=== PATIENT | male | born 1970 | race Caucasian/White ===

== ENCOUNTER 2024-07-16 19:08 | Emergency (ER) | payer MEDICARE ==
[~2024-07-16] VITALS: Ht 180.3 cm; Wt 118.2 kg
[2024-07-16 20:32] LABS: BASOPHILS % (AUTO) 0.2 % (0-1); EOSINOPHILS % (AUTO) 0 % (0-6); HEMATOCRIT 29.1 % (42.0-52.0); HEMOGLOBIN 9.5 g/dl (14.0-17.9); LYMPHOCYTES # (AUTO) 0.9 X10'3 (1.1-4.8); LYMPHOCYTES % (AUTO) 6.3 % (21-51); MEAN CORPUSCULAR HEMOGLOBIN 30.1 PG (27.0-31.0); MEAN CORPUSCULAR HGB CONC 32.5 g/dL (33.0-36.5); MEAN CORPUSCULAR VOLUME 92.4 FL (78-98); MEAN PLATELET VOLUME 7.4 FL (7.4-10.4); MONOCYTES # (AUTO) 1.3 X10'3 (0-0.9); MONOCYTES % (AUTO) 9.4 % (2-12); NEUTROPHILS # (AUTO) 11.7 X10'3 (1.8-7.7); NEUTROPHILS % (AUTO) 84.1 % (42-75); PLATELET COUNT 288 X10'3 (140-440); RED BLOOD COUNT 3.15 X10'6 (4.70-6.10); RED CELL DISTRIBUTION WIDTH 15.7 % (11.5-14.5); WHITE BLOOD COUNT 13.9 X10'3 (4.5-11.0)
[2024-07-16 20:52] LABS: ALANINE AMINOTRANSFERASE < 6 U/L (12-78); ALBUMIN 2.9 G/DL (3.4-5.0); ALBUMIN/GLOBULIN RATIO 0.6 (1.1-1.5); ALKALINE PHOSPHATASE 65 IU/L (46-116); ANION GAP 21 (8-16); ASPARTATE AMINO TRANSFERASE 9 U/L (10-37); BILIRUBIN,TOTAL 0.6 MG/DL (0.1-1.0); BLOOD UREA NITROGEN 87 MG/DL (7-18); BUN/CREATININE RATIO 5.6 (10.0-20.0); CHLORIDE 94 MMOL/L (99-107); CREATININE 15.67 MG/DL (0.60-1.10); GLUCOSE 116 MG/DL (70-104); POTASSIUM 4.9 MMOL/L (3.5-5.1); SODIUM 135 MMOL/L (135-145); TOTAL CARBON DIOXIDE 20.5 MMOL/L (24-32); TOTAL PROTEIN 8.1 G/DL (6.4-8.2); eCRCL 6 ML/MIN; eGFR 3 ML/MIN
--- NOTE | 2024-07-16 21:45 | Physician Documentation ---
History of Present Illness ~ Chief Complaint: Foot pain Stated Complaint: FOOT WOUND Time Seen by MD: 21:44 Mode of Arrival: Wheelchair HPI 54-year-old male IDDM 2 ESRD Thursday dialysis presenting for left heel wound. He reports he stepped on a rock that was in his shoe and has had an open wound for about 7 weeks. He underwent course of doxycycline and followed with Podiatry. He reports over the last week he has noticed a strong smell from the area and increasing redness around the site. Tetanus witin 5 years: Yes Medication Reconciliation Allergies: Coded Allergies: Penicillins (Verified Allergy, Mild, Hives,SOB, 07/16/24) Review of Systems All Other Systems at this time: Reviewed and Negative Constitutional: Denies: fever Physical Exam Vital Signs: Temperature: 97.7, Source: Temporal, Heart Rate: 63, Respiratory Rate: 16, BP: 135/66, Pulse Oximetry: 98, Weight: 118.180 Oxygen Flow Rate: 0 Physical Exam Chronically ill Left lower extremity massive lower extremity edema, 6 cm left heel ulcer with foul smell and serous drainage Progress Progress Note 11:16 p.m. I discussed case with hospitalist who agrees to accept for admission however at bedside for both evaluated the patient and he does not want to stay in the hospital. I would advise that he is likely to lose his foot if he does not stay for IV antibiotics. He does not want to stay he [place] and is already expecting to lose his foot Results/Orders Results/Orders Orders - SANTIAGO SANTILLAN MD Foot, Complete (3vw Min) (07/16/24 21:50) Piperacillin/Tazo 4.5gm/100ml (Zosyn 4.5 (07/16/24 21:50) Culture Blood (07/16/24 21:57) Page Hospitalist (07/16/24 21:58) Fill Out Med Reconciliation (07/16/24 21:58) Completed Orders - SANTIAGO SANTILLAN MD Cbc/Diff (07/16/24 19:44) CMP (07/16/24 19:44) ESR (07/16/24 21:50) Foot, Complete (3vw Min) (07/16/24 21:50) Piperacillin/Tazo 4.5gm/100ml (Zosyn 4.5 (07/16/24 21:50) Vancomycin*Pharmacy To Dose* (Vancomycin (07/16/24 22:00) Lacticsepsis (07/16/24 21:57) C-Reactive Protein (07/16/24 20:06) Vital Signs 07/16/24 07/16/24 19:36 21:35 Temp 97.7 Pulse 63 Resp 16 16 B/P (MAP) 135/66 Pulse Ox 98 O2 Flow Rate 0 Laboratory Tests Test 07/16/24 20:06 07/16/24 22:06 White Blood Count 13.9 H Red Blood Count 3.15 L Hemoglobin 9.5 L Hematocrit 29.1 L Mean Corpuscular Volume 92.4 Mean Corpuscular Hemoglobin 30.1 Mean Corpuscular Hemoglobin Concent 32.5 L Red Cell Distribution Width 15.7 H Platelet Count 288 Mean Platelet Volume 7.4 Neutrophils (%) (Auto) 84.1 H Lymphocytes (%) (Auto) 6.3 L Monocytes (%) (Auto) 9.4 Eosinophils (%) (Auto) 0 Basophils (%) (Auto) 0.2 Neutrophils # (Auto) 11.7 H Lymphocytes # (Auto) 0.9 L Monocytes # (Auto) 1.3 H Eosinophils # (Auto) 0.0 Basophils # (Auto) 0.0 CBC Comment Erythrocyte Sedimentation Rate 104 H Sodium Level 135 Potassium Level 4.9 Chloride Level 94 L Carbon Dioxide Level 20.5 L Anion Gap 21 H Blood Urea Nitrogen 87 H Creatinine 15.67 H Estimated GFR/1.73 m2 3 BUN/Creatinine Ratio 5.6 L Glucose Level 116 H Calcium Level 9.0 Total Bilirubin 0.6 Aspartate Amino Transf (AST/SGOT) 9 L Alanine Aminotransferase (ALT/SGPT) < 6 L Alkaline Phosphatase 65 C-Reactive Protein 20.86 H Total Protein 8.1 Albumin 2.9 L Globulin 5.2 H Albumin/Globulin Ratio 0.6 L Chemistry Comments Lactic Acid Level 1.2 EKG/XRAY/CT/US/VASC/MRI Bone/Soft Tissue X-Ray (Ext.) : Additional Comment I independently interpreted x-ray shows large soft tissue swelling, no foreign body, no osteomyelitis Medical Decision Making Additional Comment Cellulitis, abscess, osteomyelitis Departure Disposition: LEFT AGAINST MEDICAL ADVICE Impression: Primary Impression: Diabetic foot infection Additional Impression Text Patient with diabetic foot wound to his heel that appears necrotic and needs debridement and IV antibiotics. He does not want to stay in the hospital and already has wound care and podiatry outpatient. He would like to try oral antibiotics. Additional Instructions: As discussed we highly recommend you stay in the hospital for treatment as you are likely to lose her foot if you do not get this infection under control. The next best alternative is to follow up with wound care podiatry and I will put you on antibiotics Referrals: NO PRIMARY CARE PROVIDER (PCP) Prescriptions Cephalexin Monohydrate (Cephalexin) 500 Mg Capsule 1 CAP PO Q6H for 10 Days, #40 CAP Prov: SANTIAGO SANTILLAN MD 07/16/24 Signature Scribe Signature: karie Attestation: SANTIAGO Rodriguez MD July 16, 2024 21:45
[2024-07-16] MEDS ORDERED: piperacillin/tazo 4.5gm/100ml 100 ML IV ONE (21:50)
[2024-07-16 22:17] LABS: C-REACTIVE PROTEIN 20.86 MG/DL (0.0-0.5)
--- NOTE | 2024-07-16 22:29 | RADIOLOGY REPORT ---
CLINICAL INDICATION: heel wound TECHNIQUE: 3 radiographic views of the left foot were obtained. Comparison: None FINDINGS/IMPRESSION: There is no evidence of acute fracture or dislocation. 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 Massive soft tissue swelling is noted over the distal leg and foot. The visualized joint space is well maintained. The alignment is anatomical. There is no radiopaque foreign body. HS:Y
[2024-07-16] MEDS ORDERED: CEPH500C2 PO (23:19)
[2024-07-16] MEDS: ceFAZolin 1gm IM kit IM ONE (23:32)
[2024-07-16] MEDS: VANCOMYCIN 2GM/400ML H20 (PEG) 400 ML IV ONE ×2 (23:38→23:52)
[2024-07-16 23:40] VITALS: BP 145/80; PULSE 80; RESP 16; TEMP 97.8; O2SAT 99
== END 2024-07-16 23:48 | disposition left against medical advice (07) ==
LOC: ER 19:10
DX: E11.69 Type 2 diabetes mellitus with other specified complication (principal); E11.22 Type 2 diabetes mellitus with diabetic chronic kidney disease; N18.6 End stage renal disease; Z88.0 Allergy status to penicillin; Z79.4 Long term (current) use of insulin
CPT/HCPCS: 36415; 73630; 80053; 83605; 85025; 85651; 86140; 87040; 96372; 99284; A6213; J0690; 87186